=== PATIENT | female | born 1960 | race Caucasian/White ===

== ENCOUNTER → 2018-03-04 | Outpatient (CLI) | payer OTHER | LOC: GMAL 11:42 | PROVIDERS: ATTEND Family Medicine | DX: D51.3 Other dietary vitamin B12 deficiency anemia (principal); E55.9 Vitamin D deficiency, unspecified ==

== ENCOUNTER → 2019-01-06 | Outpatient (CLI) | payer OTHER | LOC: GMAL 14:22 | PROVIDERS: ATTEND Family Medicine | DX: E55.9 Vitamin D deficiency, unspecified (principal); I10 Essential (primary) hypertension; E11.9 Type 2 diabetes mellitus without complications; E78.49 Other hyperlipidemia ==

== ENCOUNTER → 2019-08-27 | Outpatient (CLI) | payer OTHER | LOC: GMAL 11:21 | PROVIDERS: ATTEND Family Medicine | DX: Z00.01 Encounter for general adult medical examination with abnormal findings (principal) ==

== ENCOUNTER → 2020-01-06 | Outpatient (CLI) | payer OTHER | LOC: LAB.O 09:42 | PROVIDERS: ATTEND Family Medicine | DX: R53.82 Chronic fatigue, unspecified (principal); G90.09 Other idiopathic peripheral autonomic neuropathy; M25.50 Pain in unspecified joint ==

== ENCOUNTER → 2020-04-21 | Outpatient (CLI) | payer BC | LOC: GMAL 11:10 | PROVIDERS: ATTEND Family Medicine | DX: D51.3 Other dietary vitamin B12 deficiency anemia (principal); E55.9 Vitamin D deficiency, unspecified; I10 Essential (primary) hypertension; E11.9 Type 2 diabetes mellitus without complications; E78.49 Other hyperlipidemia; Z20.828 Contact with and (suspected) exposure to other viral communicable diseases ==